=== PATIENT | female | born 1990 | race Hispanic/Latino ===

== ENCOUNTER 2017-11-11 18:54 | Emergency (ER) | payer OTHER ==
--- NOTE | 2017-11-11 21:50 | ED PDOC ---
HPI: Chest Pain Time Seen by Provider: 11/11/17 21:17 Chief Complaint (Nursing): Chest Pain Chief Complaint (Provider): chest pain History Per: Patient History/Exam Limitations: no limitations Onset/Duration Of Symptoms: Days (2), Waxing/Waning Current Symptoms Are (Timing): Still Present Additional Complaint(s): 27 y/o female presents with intermittent chest pain x 2 days. Patient states pain pinpoint to right under beginning of left collar bone, worse to touch. Today notes radiation of pain to left shoulder, which prompted ED visit. Denies fever, cough, congestion, shortness of breath, palpitations, known injury , numbness/weakness of extremities, leg pain/swelling, recent travel, OCP use. Past Medical History Reviewed: Historical Data, Nursing Documentation, Vital Signs Vital Signs: Last Vital Signs Temp 97.9 F 11/11/17 19:05 Pulse 89 11/11/17 19:05 Resp 18 11/11/17 19:05 BP 148/97 H 11/11/17 19:05 Pulse Ox 99 11/11/17 21:51 - Medical History PMH: No Chronic Diseases - Surgical History Surgical History: No Surg Hx - Family History Family History: States: No Known Family Hx - Living Arrangements Living Arrangements: With Family - Allergies Allergies/Adverse Reactions: Allergies Allergy/AdvReac Type Severity Reaction Status Date / Time No Known Allergies Allergy Verified 11/11/17 19:05 ANTONI Risk Score for UA/NSTEMI - ANTONI Risk Score Age > 64: NO 3 or more CAD Risk Factors: NO Known CAD (Stenosis greater than 50%): NO Aspirin use in past 7 days: NO Severe Angina: NO EKG ST changes greater than 0.5mm: NO Positive Cardiac Marker: NO ANTONI Score: 0 Risk %: 5% Curb-65 Severity Score - CURB-65 Severity Score Confusion: No Bun >19mg/dl (>7mmol/L): No Respiratory Rate greater than/equal to 30: No Systolic BP <90 or Diastolic BP less than/equal 60mmHg: No Age >64: No Curb-65 Score: 0 Percentage 30-day mortality: 0.6% Review of Systems ROS Statement: Except As Marked, All Systems Reviewed And Found Negative Cardiovascular: Positive for: Chest Pain Physical Exam - Reviewed Nursing Documentation Reviewed: Yes Vital Signs Reviewed: Yes - Physical Exam Appears: Positive for: Well, Non-toxic, No Acute Distress Head Exam: Positive for: ATRAUMATIC, NORMAL INSPECTION, NORMOCEPHALIC Skin: Positive for: Normal Color Eye Exam: Positive for: Normal appearance ENT: Positive for: Normal ENT Inspection Cardiovascular/Chest: Positive for: Regular Rate, Rhythm. Negative for: Chest Non Tender (tender to palpate superior left chest wall, inferior to clavicle; no swelling, deformity, palpable mass noted) Respiratory: Positive for: Normal Breath Sounds Gastrointestinal/Abdominal: Positive for: Normal Exam Back: Positive for: Normal Inspection Extremity: Positive for: Normal ROM Neurologic/Psych: Positive for: Alert, Oriented - Laboratory Results Result Diagrams: 11/11/17 22:26 11/11/17 22:26 - ECG ECG: Positive for: Viewed By Me (reviewed by ED attending) ECG Rhythm: Positive for: Sinus Rhythm O2 Sat by Pulse Oximetry: 99 Pulse Ox Interpretation: Normal - Radiology X-Ray: Viewed By Me X-Ray Interpretation: No Acute Disease - Progress ED Course And Treament: labs, ekg, chest xray, toradol Patient educated on findings, discharged with instructions to follow up pmd 2-3 days. Advised NSAIDs. Return precautions given. Disposition - Clinical Impression Clinical Impression: Atypical chest pain - Patient ED Disposition Is Patient to be Admitted: No Counseled Patient/Family Regarding: Studies Performed, Diagnosis, Need For Followup - Disposition Referrals: [facility] [Outside] Hitesh Gomez MD [Staff Provider] - Disposition: Routine/Home Disposition Time: 23:50 Condition: IMPROVED Instructions: Chest Pain That Is Not Caused by the Heart (DC) Forms: [employer] ([place]izean)
[2017-11-11 22:43] LABS: BASO % 0.6 % (0.0-2.0); EOS % 0.5 % (0.0-4.0); HEMOGLOBIN 13.7 g/dL (12.0-16.0); LYMPH # 2.7 K/uL (1.0-4.3); LYMPH % 38.2 % (20.0-40.0); MEAN CELL VOLUME 93.6 fl (81.0-99.0); MEAN CORPUSCULAR HEMOGLOBIN 31.4 pg (27.0-31.0); MEAN CORPUSCULAR HGB CONC 33.5 g/dL (33.0-37.0); MEAN PLATELET VOLUME 8.2 fl (7.2-11.7); MONO # 0.5 K/uL (0.0-0.8); MONO % 7.7 % (0.0-10.0); NEUT # 3.7 K/uL (1.8-7.0); RBC 4.37 Mil/uL (3.80-5.20); RED CELL DISTRIBUTION WIDTH 12.7 % (11.5-14.5)
[2017-11-11 22:52] LABS: ALB/GLOB RATIO 1.5 (1.0-2.1); ALBUMIN 4.5 g/dL (3.5-5.0); ALT/SGPT 28 U/L (9-52); AST/SGOT 21 U/L (14-36); BLOOD UREA NITROGEN 13 mg/dl (7-17); CALCIUM 9.6 mg/dL (8.4-10.2); GFR AFRICAN-AMERICAN > 60; GFR NON-AFRICAN AMERICAN > 60
[2017-11-12 00:19] VITALS: BP 121/77; PULSE 75; RESP 17; TEMP 98.3; O2SAT 100
--- NOTE | 2017-11-12 08:40 | RAD ---
HISTORY: chest pain COMPARISON: No prior. TECHNIQUE: Chest PA and lateral FINDINGS: LUNGS: No active pulmonary disease. PLEURA: No significant pleural effusion identified. No pneumothorax apparent. CARDIOVASCULAR: Normal. OSSEOUS STRUCTURES: No significant abnormalities. VISUALIZED UPPER ABDOMEN: Normal. OTHER FINDINGS: None. IMPRESSION: No acute cardiopulmonary disease appreciated.
--- NOTE | 2017-11-12 12:19 | CARD ---
APPROVED REPORT EKG Measurement Heart [id number] IA 90P-3 [id number] <Conclusion> Sinus rhythm with short IA Otherwise normal ECG
== END 2017-11-12 00:34 | disposition home or self-care (01) ==
LOC: H.ER 18:54
DX: R07.89 Other chest pain (principal)
CPT/HCPCS: 71046; 80053; 81025; 84484; 85025; 93005; 96374; 99283; J1885